=== PATIENT | female | born 2000 | race Caucasian/White ===

== ENCOUNTER 2022-02-19 00:27 | Day surgery (SDC) | payer OTHER, SELFPAY ==
[2022-02-15 14:27] VITALS: BMI 35.9
--- NOTE | 2022-02-15 14:53 | PC.NURSE ---
Report to the Outpatient Waiting Room, entrance under the green pavilion located off [facility], at time 0930 on date 02/19/2022. OR Time: 1130. Time changes happen often and if your time is changed the preop area will call you the afternoon before. - You and your visitor will be asked to self-screen and do not enter if you have any COVID symptoms. - Only one visitor and NO children visitors are allowed at this time. - The patient visitor is requested to leave or wait in car when not with patient due to restrictions. - A mask is required within the hospital. Patients may have clear liquids (water, carbonated beverages, clear teas, apple juice) until 3 hours prior to surgery with a maximum of 20 ounces 0830. - No food from midnight until time of surgery - Infants may have breast milk until 4 hours before surgery, infant formula 6 hours prior to surgery. - Children will be allowed to drink immediately following surgery. If applicable, please bring a bottle or sippy cup to assist with drinking. Juice, water, soda, and popsicles are readily available. For infants on formula, please bring formula the day of surgery. Pacifiers are allowed. Take the following medications with a SIP of water the morning of surgery: N/A Medications to discontinue per physician N/A Date to take last dose N/A Please no make-up, nail korean, hairspray, perfume, deodorant, or body powder the day of surgery. No jewelry (including any body piercings) or valuables the day of surgery, leave them at home. Please take a shower or bath the night before, or the morning of, surgery with an antibacterial soap. Wear comfortable, loose fitting clothing. Children are encouraged to wear pajamas. - Jewelry must be removed prior to entering the operating room. Rings and piercings that are not removed may be cut off. - The hospital will not accept responsibility for valuables. - Please leave all valuables, including medications, at home the day of surgery. If you are going home after surgery, a licensed recycling collections driver must drive you home. - NO public transportation without another adult. - We recommend that an adult stay with you for 24 hours following discharge. - We also recommend that you do not drive, make important decision, drink alcoholic beverages, or take any drugs that were not prescribed by your health care provider for at least 24 hours after your discharge time. For Pediatric surgeries, we recommend two adults accompany the child home (only one inside the building at this time). Follow any additional instructions given to you from your surgeon. If you or anyone in your household have experienced Covid symptoms in the past week, please notify your surgeon or the nurse liaison at the phone number below for possible testing. Telephone instructions given to Elsa Richardson and asked if any additional questions and then verbalized understanding. Patient advised to call surgeon office or pre surgery nurse liaison [phone] if any additional questions.
--- NOTE | 2022-02-18 20:03 | PM.IMHP ---
H&P: HPI History of Present Illness Date/Time: 02/18/22 20:03 Chief Complaint: endocervical polyp Narrative: Elsa is a 21yo G0, LMP who presented to clinic in November 2021. She reports feeling a pressure or bulge sensation in her vagina. She reports her cycles are normal. She does not use tampons. She denies any AUB or discharge. She has never been sexually active. She denies any pain. On exam in office; a 2-3cm delivering polyp vs fibroid was noted (with a 1cm stalk); it was friable and easily bled. Review of Systems Review of Systems: All systems reviewed & are unremarkable except as noted in HPI and below PMFSH Social History Social History Smoking status: Never smoker Alcohol intake: never Substance use: never Substance use type: does not use Gender identity (if verbalized by the patient): Female Sexual Orientation (if Verbalized by the Patient): Straight or Heterosexual Spiritual care concerns: No Meds Home Medications and Allergies Home Medications Medication Instructions Recorded Confirmed Type No Home Medications 11/27/21 02/15/22 History Allergies Allergy/AdvReac Type Severity Reaction Status Date / Time sulfamethoxazole Allergy Severe Rash Verified 02/15/22 14:26 [From Febra] trimethoprim [From Febra] Allergy Severe Rash Verified 02/15/22 14:26 Exam Const: General: cooperative, healthy appearing, comfortable and no acute distress Resp: Effort & Inspection: normal respiratory effort Cardio: Rate: regular rate GI: Inspection: normal to inspection GI Palp: No abdominal tenderness and Yes Soft to palpation : Other: deferred to OR Skin: General skin exam: normal color Neuro: General: patient oriented x3 Extrem: General: normal to inspection Psych: Appearance: grossly normal Affect: normal affect Attitude: cooperative Assessment and Plan Assessment and plan (1) Endocervical polyp: Code(s): N84.1 - Polyp of cervix uteri Status: Acute Plan - Proceed with hysteroscopic polypectomy - Risks and benefits explained in detail
--- NOTE | 2022-02-19 07:03 | WPDHPUPDATE1 ---
History and Physical Update Update Date/Time: 02/19/22 07:03 History and Physical has been reviewed, including an updated exam of the patient. There are NO changes in the patient's condition. Risks, benefits, and alternatives have been discussed and questions answered. Patient agrees to proceed with procedure.
[2022-02-19] MEDS: ACETAMINOPHEN 500 MG TABLET 1000 MG PO (09:57)
[2022-02-19 10:03] VITALS: BP 124/85; PULSE 92; RESP 16; TEMP 36.9; O2SAT 100
[2022-02-19] MEDS: LACTATED RINGERS 1,000 ML 30 ML IV CONT (10:15)
--- NOTE | 2022-02-19 10:20 | WPDANESEPPF ---
Anes - Initial Pre Proc Eval Procedure: Operation Date: 02/19/22 11:30 Proposed Procedures p Hysteroscopy Dilation and Curettage with Polypectomy - Payton Rush MD Date/Time: 02/19/22 10:20 Surgeon: Payton Rush MD Pre Op Diagnosis: endometrial polyp Patient Data Age: 21 Gender: F Height: 1.55 m Weight: 109.1 kg Last Vital Signs Temp 36.9 C 02/19/22 10:03 Pulse 92 02/19/22 10:03 Resp 16 02/19/22 10:03 BP 124/85 02/19/22 10:03 Pulse Ox 100 02/19/22 10:03 O2 Del Method Room Air 02/19/22 10:03 Allergies Allergy/AdvReac Type Severity Reaction Status Date / Time sulfamethoxazole Allergy Severe Rash Verified 02/19/22 09:50 [From ] trimethoprim [From ] Allergy Severe Rash Verified 02/19/22 09:50 Home Medications Medication Instructions Recorded Confirmed Type No Home Medications 11/27/21 02/19/22 History Patient hx anesthesia problems: none Family hx anesthesia problems: none Results Review: All pre-operative results and documents have been reviewed as part of the pre-operative evaluation. [facility] Past Medical History Medical History (Updated 02/19/22 @ 10:20 by Victor Manuel Tyson MD) Obesity Surgical History Surgical History (Updated 02/19/22 @ 10:20 by Victor Manuel Tyson MD) Hx of tonsillectomy Social History Social History Smoking status: Never smoker Alcohol intake: never Substance use: never Substance use type: does not use Living arrangements: with family Gender identity (if verbalized by the patient): Female Sexual Orientation (if Verbalized by the Patient): Straight or Heterosexual Spiritual care concerns: No Anes - Eval Final PreProcedure Day of Procedure 02/19/22 10:20 Patient weight: morbidly obese Heart: regular rate and rhythm Lungs: clear to auscultation Airway: Mallampati scale Neurological: alert and oriented Last oral intake: >/= 8 hours ASA classification: II Emergent: no Anesthetic plan: proceed Anesthesia type and monitoring: general GIVS and standard monitoring Results Review: All pre-operative results and documents have been reviewed as part of the pre-operative evaluation. Informed Consent: The patient's anesthetic plan and its attendant risks and benefits were discussed with the patient/family/POA. Questions were solicited and answers provided to the satisfaction of the patient/family/POA.
[2022-02-19] MEDS: KETOROLAC 30 MG/ML VIAL (*BKC) IV PUSH (10:41)
[2022-02-19 11:21] VITALS: BP 103/82; PULSE 82; RESP 14; O2SAT 96
--- NOTE | 2022-02-19 11:21 | P.OP_ITS ---
Procedure Note - Detailed Date of Procedure 02/19/22 Pre-op Diagnosis endometrial vs endocervical polyp Post-op Diagnosis Same Procedure Performed Hysteroscopic polypectomy Surgeon Payton Rush MD Anesthesia MAC Findings Uterus 9cm, cervix dilated and 3cm meaty polyp protruding through cervical os w/ at least a 1cm stalk, Myosure (operative hysteroscopy) used to remove stalk that was arising in the uterus but also had adhesions in the cervix; removed in whole. Thickened lining in the uterus, unable to visualize the tubal ostia. Fluid deficit: 100cc. Good hemostasis at end of case. Description of Procedure Elsa was taken to the operating room where she was placed under sedation without complications. She was then prepped and draped in the usual sterile fashion in the dorsal lithotomy position with her legs in low Franko stirrups. A time-out was performed and no preoperative antibiotics were indicated. A bivalved speculum was then placed within the vagina where the above findings were noted. A single-tooth tenaculum was then placed on the anterior lip of the cervix and the uterus was sounded. The cervix was then serially dilated to allow for the MyoSure hysteroscope. The hysteroscope was advanced into the cervix where some adhesions were noted to be arising from the endocervix. Using the MyoSure device a significant portion of the stalk was attempted to be removed however, it appeared that the stalk was still arising from higher in the uterus. The hysteroscope was removed and a ring forcep was used to grasp the large polyp which was then twisted on its stalk. A significant portion of the polyp was removed, however some still remained. The ring forceps were once again used to grab the remaining portion and it was twisted on its stalk where an additional large portion was removed (3x2cm and 2x1.5cm portions were removed ). The hysteroscope was once again advanced into the cervix where small portions of the stalk remained. Using the MyoSure device the remaining portions of the stalk were removed without complications. Good hemostasis was noted. All instruments were removed from the vagina. Sponge, lap, instrument, and needle counts were correct at the end the procedure. Patient was awoken from anesthesia and taken to recovery in a stable condition with plans of same-day discharge home. Estimated Blood Loss 15 IV Fluids 700 Pathology Yes (endocervical polyp) Complications No immediate complications Condition Stable Disposition Same day [facility] Billing Surgery - Charge Forward: Surgery Billing
[2022-02-19] MEDS: ONDANSETRON INJ 4 MG/2 ML VIAL IV PUSH (11:40)
[2022-02-19 11:51] VITALS: BP 120/62; PULSE 82; RESP 14; O2SAT 100
[2022-02-19 12:15] VITALS: BP 115/59; PULSE 91; RESP 14
== END 2022-02-19 12:22 | disposition home or self-care (01) ==
PROVIDERS: Visit Provider Obstetrics & Gynecology
PROC: 0U5B8ZZ Destruction of Endometrium, Via Natural or Artificial Opening Endoscopic (ICD-10-PCS; CPT 58563; principal; 2022-02-19 11:30)
DX: N84.1 Polyp of cervix uteri (principal); E66.01 Morbid (severe) obesity due to excess calories; Z68.42 Body mass index [BMI] 45.0-49.9, adult
CPT/HCPCS: 58558; 88305; A9270; J1885; J2250; J2405; J2704; J7120